=== PATIENT | male | born 1950 | race Caucasian/White ===

== ENCOUNTER 2024-11-08 09:09 | Inpatient (IN) | payer MEDICARE ==
[2024-11-08] MEDS ORDERED: Iopamidol-370 76% 500 ML MDV (1 ML CHARGE) ONE (09:30)
[2024-11-08 10:24] LABS: ALT (SGPT) 7 U/L (Less than 45); AST (SGOT) 17 U/L (11-34); Albumin 3.6 g/dL (3.1-4.5); Alkaline Phosphatase 81 U/L (40-110); Anion Gap 10 mmol/L (10-20); BUN (Urea Nitrogen) 25 mg/dL (8.4-25.7); Bilirubin, Total 0.5 mg/dL (0.3-1.2); Calc. Creatinine Clearance 0 mL/min (70-130); Calcium 9.2 mg/dL (7.8-10.44); Carbon Dioxide 21 mmol/L (23-31); Chloride 110 mmol/L (98-107); Globulin 2.2 g/dL (2.4-3.5); Glucose 108 mg/dL (83-110); Potassium 4.0 mmol/L (3.5-5.1); Sodium 137 mmol/L (136-145)
[2024-11-08 10:34] LABS: INR-International Normal Ratio 1.4; Prothrombin Time 16.8 sec (12.0-14.7)
[2024-11-08 10:35] LABS: PTT 36.7 sec (22.9-36.1)
[2024-11-08 10:40] LABS: #Basophils 0.04 10x3/uL (0.0-0.2); #Eosinophils 0.14 10x3/uL (0.0-0.7); #Monocytes 0.67 10x3/uL (0.11-0.59); #Neutrophils 6.90 10x3/uL (1.40-6.50); %Basophils 0.5 % (0.0-1.0); %Eosinophils 1.7 % (0.0-10.0); %Lymphocytes 4.3 % (21.0-51.0); %Monocytes 8.2 % (0.0-10.0); %Neutrophils 84.9 % (42.0-75.0); Hematocrit 24.5 % (42.0-52.0); Hemoglobin 8.2 g/dL (14.0-18.0); Mean Corpuscular Hemoglobin 34.9 pg (27.0-31.0); Mean Corpuscular Volume 104.3 fL (78.0-98.0); Platelet Count 123 10x3/uL (130-400); Red Blood Cell (RBC) Count 2.35 mill/uL (4.70-6.10); White Blood Cell (WBC) Count 8.13 10x3/uL (4.8-10.8)
[2024-11-08 10:48] LABS: Glucose, Urine (Dipstick) Negative (Negative); Leukocyte Negative (Negative); Protein, Urine (Dipstick) > or equal to 300 mg/dL (Neg-Trace); Specific Gravity, Urine 1.020 (1.005-1.030)
[2024-11-08 10:58] LABS: Bacteria/HPF 1+ HPF (None Seen); CAUTI Indications for Culture Acute Hematuria; RBC/HPF 21-50 HPF (0-3); WBC/HPF 0-3 HPF (0-3)
[2024-11-08 10:59] LABS: Urine Culture Reflex No No
[2024-11-08 11:14] LABS: Anisocytosis SLIGHT = 6-15 cells HPF (0-5); Macrocytosis SLIGHT = 6-15 cells HPF (0-5); Platelet Adequacy Comment Platelets Decreased; Polychromasia SLIGHT = 2-3 cells HPF (0-2); Schistocytes SLIGHT = 2-5 cells HPF (0-1)
[2024-11-08 11:22] LABS: Fibrinogen 416 mg/dL (253-463)
[2024-11-08 11:24] LABS: D-Dimer Test Less than 0.27 mcg/mL (0.27-0.43)
[2024-11-08] MEDS ORDERED: Acetaminophen 500 MG TAB ONE (12:00)
[2024-11-08] MEDS ORDERED: ALPRAZolam 0.25 MG TAB ONE (12:49)
[2024-11-08] MEDS ORDERED: HYDROmorphone 0.5 MG/0.5 ML SYRINGE ONE ×6 (14:31→17:50)
[2024-11-08 15:17] LABS: Hematocrit 23.5 % (42.0-52.0); Hemoglobin 7.8 g/dL (14.0-18.0); Platelet Count 135 10x3/uL (130-400)
[2024-11-08] MEDS ORDERED: Ondansetron PF 4 MG/2 ML Vial ONE ×2 (15:58→17:31)
[2024-11-08] MEDS ORDERED: Ondansetron PF 4 MG/2 ML Vial IVP PRN (16:10)
[2024-11-08] MEDS ORDERED: Acetaminophen 325 MG TAB PO PRN (16:10)
[2024-11-08] MEDS ORDERED: Melatonin 3 MG TAB PO PRN (16:54)
[2024-11-08] MEDS ORDERED: cefTRIAXone (ROCEPHIN) 2 GM VIAL ONE (17:50)
[2024-11-08] MEDS: cefTRIAXone\\ROCEPHIN 1 GM in Sodium Chloride 0.9% 100 ML IVPB SCH (20:40)
[2024-11-08 20:58] LABS: Hemoglobin 7.8 g/dL (14.0-18.0)
[2024-11-08] MEDS ORDERED: Rocuronium Bromide 10 MG/ML (10ML VIAL) ONE (22:38)
[2024-11-08] MEDS ORDERED: PROPOFOL 20 ML ONE (22:38)
[2024-11-08] MEDS ORDERED: Lidocaine 1% PF 5 ML VIAL ONE (22:38)
[2024-11-08] MEDS ORDERED: PHENYLEPHRINE-NS 100 MCG/ML 10 ML SYRINGE ONE (23:44)
[2024-11-09] MEDS ORDERED: PHENYLEPHRINE-NS 100 MCG/ML 10 ML SYRINGE ONE (00:28)
[2024-11-09 00:29] LABS: #Basophils Less than 0.03 10x3/uL (0.0-0.2); #Eosinophils Less than 0.03 10x3/uL (0.0-0.7); #Monocytes 0.25 10x3/uL (0.11-0.59); #Neutrophils 3.43 10x3/uL (1.40-6.50); %Basophils 0.5 % (0.0-1.0); %Eosinophils 0.5 % (0.0-10.0); %Lymphocytes 2.3 % (21.0-51.0); %Monocytes 6.5 % (0.0-10.0); %Neutrophils 89.7 % (42.0-75.0); Hematocrit 22.3 % (42.0-52.0); Hemoglobin 7.5 g/dL (14.0-18.0); Mean Corpuscular Hemoglobin 35.0 pg (27.0-31.0); Mean Corpuscular Volume 104.2 fL (78.0-98.0); Platelet Count 87 10x3/uL (130-400); Red Blood Cell (RBC) Count 2.14 mill/uL (4.70-6.10); White Blood Cell (WBC) Count 3.83 10x3/uL (4.8-10.8)
[2024-11-09] MEDS ORDERED: SUGAMMADEX SODIUM 200 MG/2 ML VIAL ONE (00:30)
[2024-11-09] MEDS ORDERED: Ondansetron PF 4 MG/2 ML Vial ONE ×2 (00:35→01:15)
[2024-11-09] MEDS ORDERED: Meperidine HCl/PF 25 MG (1 mL) VIAL ONE (00:49)
[2024-11-09] MEDS: HYDROmorphone 0.5 MG/0.5 ML SYRINGE SLOW IVP SCH ×3 (04:54→20:38)
[2024-11-09 06:10] LABS: ALT (SGPT) Less than 7 U/L (Less than 45); AST (SGOT) 21 U/L (11-34); Albumin 2.9 g/dL (3.1-4.5); Alkaline Phosphatase 70 U/L (40-110); Anion Gap 14 mmol/L (10-20); BUN (Urea Nitrogen) 28 mg/dL (8.4-25.7); Bilirubin, Total 0.3 mg/dL (0.3-1.2); Calc. Creatinine Clearance 25 mL/min (70-130); Calcium 8.3 mg/dL (7.8-10.44); Carbon Dioxide 20 mmol/L (23-31); Chloride 106 mmol/L (98-107); Globulin 2.2 g/dL (2.4-3.5); Glucose 122 mg/dL (83-110); Potassium 4.1 mmol/L (3.5-5.1); Sodium 136 mmol/L (136-145)
[2024-11-09 07:26] LABS: #Basophils Less than 0.03 10x3/uL (0.0-0.2); #Eosinophils Less than 0.03 10x3/uL (0.0-0.7); #Monocytes 0.70 10x3/uL (0.11-0.59); #Neutrophils 9.31 10x3/uL (1.40-6.50); %Basophils 0.1 % (0.0-1.0); %Eosinophils 0.2 % (0.0-10.0); %Lymphocytes 2.0 % (21.0-51.0); %Monocytes 6.8 % (0.0-10.0); %Neutrophils 90.4 % (42.0-75.0); Hematocrit 22.4 % (42.0-52.0); Hemoglobin 7.5 g/dL (14.0-18.0); Mean Corpuscular Hemoglobin 35.2 pg (27.0-31.0); Mean Corpuscular Volume 105.2 fL (78.0-98.0); Platelet Count 120 10x3/uL (130-400); Red Blood Cell (RBC) Count 2.13 mill/uL (4.70-6.10); White Blood Cell (WBC) Count 10.30 10x3/uL (4.8-10.8)
[2024-11-09] MEDS: Ondansetron PF 4 MG/2 ML Vial IVP PRN (08:55)
[2024-11-09 10:01] LABS: Hemoglobin 6.8 g/dL (14.0-18.0)
[2024-11-09] MEDS ORDERED: oxyCODONE/Acetaminophen 5 mg/325 mg Tablet PO PRN (14:46)
[2024-11-09] MEDS: Acetaminophen 325 MG TAB PO PRN (20:37)
[2024-11-09] MEDS: valACYclovir 500 MG TAB PO SCH (20:40)
[2024-11-10] MEDS: HYDROmorphone 2 MG/ML VIAL SLOW IVP SCH (03:03)
[2024-11-10 05:11] LABS: #Basophils Less than 0.03 10x3/uL (0.0-0.2); #Eosinophils 0.25 10x3/uL (0.0-0.7); #Monocytes 0.68 10x3/uL (0.11-0.59); #Neutrophils 7.02 10x3/uL (1.40-6.50); %Basophils 0.2 % (0.0-1.0); %Eosinophils 3.0 % (0.0-10.0); %Lymphocytes 3.5 % (21.0-51.0); %Monocytes 8.2 % (0.0-10.0); %Neutrophils 84.4 % (42.0-75.0); Hematocrit 25.2 % (42.0-52.0); Hemoglobin 8.4 g/dL (14.0-18.0); Mean Corpuscular Hemoglobin 33.3 pg (27.0-31.0); Mean Corpuscular Volume 100.0 fL (78.0-98.0); Platelet Count 106 10x3/uL (130-400); Red Blood Cell (RBC) Count 2.52 mill/uL (4.70-6.10); White Blood Cell (WBC) Count 8.32 10x3/uL (4.8-10.8)
[2024-11-10 05:20] LABS: Anion Gap 9 mmol/L (10-20); BUN (Urea Nitrogen) 25 mg/dL (8.4-25.7); Calc. Creatinine Clearance 44 mL/min (70-130); Calcium 8.2 mg/dL (7.8-10.44); Carbon Dioxide 21 mmol/L (23-31); Chloride 112 mmol/L (98-107); Glucose 86 mg/dL (83-110); Potassium 3.9 mmol/L (3.5-5.1); Sodium 138 mmol/L (136-145)
[2024-11-10] MEDS: Fluconazole 100 MG TAB PO SCH (09:07)
[2024-11-10] MEDS: Allopurinol 300 MG TAB PO SCH (09:07)
[2024-11-10] MEDS: HYDROmorphone 0.5 MG/0.5 ML SYRINGE SLOW IVP SCH (11:16)
[2024-11-11 08:15] LABS: Anion Gap 9 mmol/L (10-20); BUN (Urea Nitrogen) 20 mg/dL (8.4-25.7); Calc. Creatinine Clearance 68 mL/min (70-130); Calcium 8.2 mg/dL (7.8-10.44); Carbon Dioxide 22 mmol/L (23-31); Chloride 111 mmol/L (98-107); Glucose 88 mg/dL (83-110); Potassium 3.6 mmol/L (3.5-5.1); Sodium 138 mmol/L (136-145)
[2024-11-11 11:28] LABS: #Basophils Less than 0.03 10x3/uL (0.0-0.2); #Eosinophils 0.21 10x3/uL (0.0-0.7); #Monocytes 0.63 10x3/uL (0.11-0.59); #Neutrophils 6.72 10x3/uL (1.40-6.50); %Basophils 0.3 % (0.0-1.0); %Eosinophils 2.7 % (0.0-10.0); %Lymphocytes 3.2 % (21.0-51.0); %Monocytes 8.0 % (0.0-10.0); %Neutrophils 84.8 % (42.0-75.0); Hematocrit 24.5 % (42.0-52.0); Hemoglobin 8.3 g/dL (14.0-18.0); Mean Corpuscular Hemoglobin 33.3 pg (27.0-31.0); Mean Corpuscular Volume 98.4 fL (78.0-98.0); Platelet Count 135 10x3/uL (130-400); Red Blood Cell (RBC) Count 2.49 mill/uL (4.70-6.10); White Blood Cell (WBC) Count 7.91 10x3/uL (4.8-10.8)
[2024-11-11] MEDS: HYDROcodone/Acetaminophen 5/325 mg Tablet PO PRN (11:49)
[2024-11-12 04:44] LABS: #Basophils Less than 0.03 10x3/uL (0.0-0.2); #Eosinophils 0.26 10x3/uL (0.0-0.7); #Monocytes 0.55 10x3/uL (0.11-0.59); #Neutrophils 5.89 10x3/uL (1.40-6.50); %Basophils 0.3 % (0.0-1.0); %Eosinophils 3.7 % (0.0-10.0); %Lymphocytes 3.7 % (21.0-51.0); %Monocytes 7.8 % (0.0-10.0); %Neutrophils 83.8 % (42.0-75.0); Hematocrit 21.8 % (42.0-52.0); Hemoglobin 7.1 g/dL (14.0-18.0); Mean Corpuscular Hemoglobin 32.6 pg (27.0-31.0); Mean Corpuscular Volume 100.0 fL (78.0-98.0); Platelet Count 146 10x3/uL (130-400); Red Blood Cell (RBC) Count 2.18 mill/uL (4.70-6.10); White Blood Cell (WBC) Count 7.03 10x3/uL (4.8-10.8)
[2024-11-12 05:13] LABS: ALT (SGPT) 50 U/L (Less than 45); AST (SGOT) 72 U/L (11-34); Albumin 2.4 g/dL (3.1-4.5); Alkaline Phosphatase 73 U/L (40-110); Anion Gap 8 mmol/L (10-20); BUN (Urea Nitrogen) 21 mg/dL (8.4-25.7); Bilirubin, Total 0.3 mg/dL (0.3-1.2); Calc. Creatinine Clearance 57 mL/min (70-130); Calcium 8.1 mg/dL (7.8-10.44); Carbon Dioxide 22 mmol/L (23-31); Chloride 111 mmol/L (98-107); Globulin 2.3 g/dL (2.4-3.5); Glucose 102 mg/dL (83-110); Magnesium 1.5 mg/dL (1.6-2.6); Potassium 3.8 mmol/L (3.5-5.1); Sodium 137 mmol/L (136-145)
[2024-11-12] MEDS: ALPRAZolam 0.25 MG TAB PO PRN (08:30)
[2024-11-12 21:24] LABS: Hematocrit 27.1 % (42.0-52.0); Hemoglobin 9.2 g/dL (14.0-18.0)
[2024-11-13 05:36] LABS: #Basophils Less than 0.03 10x3/uL (0.0-0.2); #Eosinophils 0.20 10x3/uL (0.0-0.7); #Monocytes 0.36 10x3/uL (0.11-0.59); #Neutrophils 3.39 10x3/uL (1.40-6.50); %Basophils 0.5 % (0.0-1.0); %Eosinophils 4.8 % (0.0-10.0); %Lymphocytes 4.3 % (21.0-51.0); %Monocytes 8.6 % (0.0-10.0); %Neutrophils 81.1 % (42.0-75.0); Hematocrit 32.1 % (42.0-52.0); Hemoglobin 10.9 g/dL (14.0-18.0); Mean Corpuscular Hemoglobin 33.3 pg (27.0-31.0); Mean Corpuscular Volume 98.2 fL (78.0-98.0); Platelet Count 128 10x3/uL (130-400); Red Blood Cell (RBC) Count 3.27 mill/uL (4.70-6.10); White Blood Cell (WBC) Count 4.18 10x3/uL (4.8-10.8)
[2024-11-13 06:37] LABS: ALT (SGPT) 49 U/L (Less than 45); AST (SGOT) 53 U/L (11-34); Albumin 2.4 g/dL (3.1-4.5); Alkaline Phosphatase 70 U/L (40-110); Anion Gap 10 mmol/L (10-20); BUN (Urea Nitrogen) 24 mg/dL (8.4-25.7); Bilirubin, Total 0.3 mg/dL (0.3-1.2); Calc. Creatinine Clearance 42 mL/min (70-130); Calcium 8.2 mg/dL (7.8-10.44); Carbon Dioxide 21 mmol/L (23-31); Chloride 110 mmol/L (98-107); Globulin 2.3 g/dL (2.4-3.5); Glucose 88 mg/dL (83-110); Magnesium 1.5 mg/dL (1.6-2.6); Potassium 3.8 mmol/L (3.5-5.1); Sodium 137 mmol/L (136-145)
[2024-11-13] MEDS: Magnesium 2 GM/50 ML(in water) 2 GM in Premix 1 BAG IVPB SCH (08:50)
[2024-11-14 05:27] LABS: #Basophils 0.03 10x3/uL (0.0-0.2); #Eosinophils 0.19 10x3/uL (0.0-0.7); #Monocytes 0.43 10x3/uL (0.11-0.59); #Neutrophils 4.66 10x3/uL (1.40-6.50); %Basophils 0.5 % (0.0-1.0); %Eosinophils 3.4 % (0.0-10.0); %Lymphocytes 4.6 % (21.0-51.0); %Monocytes 7.7 % (0.0-10.0); %Neutrophils 82.9 % (42.0-75.0); Hematocrit 26.7 % (42.0-52.0); Hemoglobin 8.8 g/dL (14.0-18.0); Mean Corpuscular Hemoglobin 32.5 pg (27.0-31.0); Mean Corpuscular Volume 98.5 fL (78.0-98.0); Platelet Count 158 10x3/uL (130-400); Red Blood Cell (RBC) Count 2.71 mill/uL (4.70-6.10); White Blood Cell (WBC) Count 5.62 10x3/uL (4.8-10.8)
[2024-11-14 05:41] LABS: ALT (SGPT) 38 U/L (Less than 45); AST (SGOT) 34 U/L (11-34); Albumin 2.3 g/dL (3.1-4.5); Alkaline Phosphatase 73 U/L (40-110); Anion Gap 9 mmol/L (10-20); BUN (Urea Nitrogen) 26 mg/dL (8.4-25.7); Bilirubin, Total 0.3 mg/dL (0.3-1.2); Calc. Creatinine Clearance 36 mL/min (70-130); Calcium 8.0 mg/dL (7.8-10.44); Carbon Dioxide 21 mmol/L (23-31); Chloride 111 mmol/L (98-107); Globulin 2.2 g/dL (2.4-3.5); Glucose 90 mg/dL (83-110); Magnesium 1.9 mg/dL (1.6-2.6); Potassium 3.9 mmol/L (3.5-5.1); Sodium 137 mmol/L (136-145)
[2024-11-15 04:53] LABS: #Basophils Less than 0.03 10x3/uL (0.0-0.2); #Eosinophils 0.22 10x3/uL (0.0-0.7); #Monocytes 0.43 10x3/uL (0.11-0.59); #Neutrophils 4.18 10x3/uL (1.40-6.50); %Basophils 0.4 % (0.0-1.0); %Eosinophils 4.3 % (0.0-10.0); %Lymphocytes 5.0 % (21.0-51.0); %Monocytes 8.3 % (0.0-10.0); %Neutrophils 81.2 % (42.0-75.0); Hematocrit 25.1 % (42.0-52.0); Hemoglobin 8.4 g/dL (14.0-18.0); Mean Corpuscular Hemoglobin 32.6 pg (27.0-31.0); Mean Corpuscular Volume 97.3 fL (78.0-98.0); Platelet Count 179 10x3/uL (130-400); Red Blood Cell (RBC) Count 2.58 mill/uL (4.70-6.10); White Blood Cell (WBC) Count 5.15 10x3/uL (4.8-10.8)
[2024-11-15] MEDS: Calcium Carbonate 500 MG ChewTAB PO SCH (05:10)
[2024-11-15 06:08] LABS: ALT (SGPT) 22 U/L (Less than 45); AST (SGOT) 19 U/L (11-34); Albumin 2.3 g/dL (3.1-4.5); Alkaline Phosphatase 73 U/L (40-110); Anion Gap 17 mmol/L (10-20); BUN (Urea Nitrogen) 31 mg/dL (8.4-25.7); Bilirubin, Total 0.3 mg/dL (0.3-1.2); Calc. Creatinine Clearance 21 mL/min (70-130); Calcium 8.0 mg/dL (7.8-10.44); Carbon Dioxide 18 mmol/L (23-31); Chloride 101 mmol/L (98-107); Globulin 2.0 g/dL (2.4-3.5); Glucose 87 mg/dL (83-110); Magnesium 1.8 mg/dL (1.6-2.6); Potassium 3.6 mmol/L (3.5-5.1); Sodium 132 mmol/L (136-145)
[2024-11-15] MEDS: Albumin 25% 25 GM (100 mL) BOT IVPB SCH ×2 (09:35→16:46)
[2024-11-15] MEDS: Sofosbuvir/Velpatasvir [Epclusa 400 Mg-100 Mg Tablet] PO SCH (11:23)
[2024-11-15 17:02] LABS: Bacteria/HPF None Seen HPF (None Seen); Glucose, Urine (Dipstick) 100 mg/dL (Negative); Leukocyte Negative Leu/uL (Negative); Protein, Urine (Dipstick) 300 mg/dL (Neg-Trace); RBC/HPF Greater than 50 HPF (0-3); Specific Gravity, Urine 1.033 (1.002-1.036); WBC/HPF 21-50 HPF (0-3)
[2024-11-15 17:10] LABS: Sodium, Urine 254 mmol/L (Not Available)
[2024-11-16 05:21] LABS: #Basophils Less than 0.03 10x3/uL (0.0-0.2); #Eosinophils 0.21 10x3/uL (0.0-0.7); #Monocytes 0.49 10x3/uL (0.11-0.59); #Neutrophils 4.82 10x3/uL (1.40-6.50); %Basophils 0.3 % (0.0-1.0); %Eosinophils 3.6 % (0.0-10.0); %Lymphocytes 4.5 % (21.0-51.0); %Monocytes 8.4 % (0.0-10.0); %Neutrophils 82.5 % (42.0-75.0); Hematocrit 20.0 % (42.0-52.0); Hemoglobin 7.0 g/dL (14.0-18.0); Mean Corpuscular Hemoglobin 33.2 pg (27.0-31.0); Mean Corpuscular Volume 94.8 fL (78.0-98.0); Platelet Count 185 10x3/uL (130-400); Red Blood Cell (RBC) Count 2.11 mill/uL (4.70-6.10); White Blood Cell (WBC) Count 5.84 10x3/uL (4.8-10.8)
[2024-11-16 05:46] LABS: Anion Gap 16 mmol/L (10-20); BUN (Urea Nitrogen) 33 mg/dL (8.4-25.7); Calc. Creatinine Clearance 15 mL/min (70-130); Calcium 8.0 mg/dL (7.8-10.44); Carbon Dioxide 20 mmol/L (23-31); Chloride 96 mmol/L (98-107); Glucose 83 mg/dL (83-110); Potassium 3.7 mmol/L (3.5-5.1); Sodium 128 mmol/L (136-145)
[2024-11-16] MEDS: Mineral Oil ENEMA PR SCH (09:31)
[2024-11-16 10:28] LABS: Magnesium 1.8 mg/dL (1.6-2.6)
[2024-11-16 10:29] LABS: Iron 41 ug/dL (65-175); Iron Binding Capacity, Total 109 mcg/dL (261-462); Uric Acid 7.4 mg/dL (3.7-7.7)
[2024-11-16 17:46] LABS: #Basophils Less than 0.03 10x3/uL (0.0-0.2); #Eosinophils 0.19 10x3/uL (0.0-0.7); #Monocytes 0.39 10x3/uL (0.11-0.59); #Neutrophils 3.64 10x3/uL (1.40-6.50); %Basophils 0.2 % (0.0-1.0); %Eosinophils 4.2 % (0.0-10.0); %Lymphocytes 6.0 % (21.0-51.0); %Monocytes 8.6 % (0.0-10.0); %Neutrophils 80.3 % (42.0-75.0); Hematocrit 22.7 % (42.0-52.0); Hemoglobin 7.9 g/dL (14.0-18.0); Mean Corpuscular Hemoglobin 32.6 pg (27.0-31.0); Mean Corpuscular Volume 93.8 fL (78.0-98.0); Platelet Count 196 10x3/uL (130-400); Red Blood Cell (RBC) Count 2.42 mill/uL (4.70-6.10); White Blood Cell (WBC) Count 4.53 10x3/uL (4.8-10.8)
[2024-11-16] MEDS: Albumin 25% 25 GM (100 mL) BOT IVPB SCH (18:03)
[2024-11-16 18:07] LABS: Anion Gap 13 mmol/L (10-20); BUN (Urea Nitrogen) 34 mg/dL (8.4-25.7); Calc. Creatinine Clearance 13 mL/min (70-130); Calcium 8.0 mg/dL (7.8-10.44); Carbon Dioxide 23 mmol/L (23-31); Chloride 95 mmol/L (98-107); Glucose 97 mg/dL (83-110); Potassium 3.5 mmol/L (3.5-5.1); Sodium 127 mmol/L (136-145)
[2024-11-17 03:37] LABS: #Basophils Less than 0.03 10x3/uL (0.0-0.2); #Eosinophils 0.22 10x3/uL (0.0-0.7); #Monocytes 0.39 10x3/uL (0.11-0.59); #Neutrophils 2.81 10x3/uL (1.40-6.50); %Basophils 0.3 % (0.0-1.0); %Eosinophils 6.0 % (0.0-10.0); %Lymphocytes 6.2 % (21.0-51.0); %Monocytes 10.6 % (0.0-10.0); %Neutrophils 76.1 % (42.0-75.0); Hematocrit 21.0 % (42.0-52.0); Hemoglobin 7.4 g/dL (14.0-18.0); Mean Corpuscular Hemoglobin 32.7 pg (27.0-31.0); Mean Corpuscular Volume 92.9 fL (78.0-98.0); Platelet Count 167 10x3/uL (130-400); Red Blood Cell (RBC) Count 2.26 mill/uL (4.70-6.10); White Blood Cell (WBC) Count 3.69 10x3/uL (4.8-10.8)
[2024-11-17 05:19] LABS: Albumin 3.2 g/dL (3.1-4.5); Anion Gap 17 mmol/L (10-20); BUN (Urea Nitrogen) 34 mg/dL (8.4-25.7); BUN/Creatinine Ratio 5.22; Calc. Creatinine Clearance 12 mL/min (70-130); Calcium 7.9 mg/dL (7.8-10.44); Carbon Dioxide 22 mmol/L (23-31); Chloride 91 mmol/L (98-107); Glucose 90 mg/dL (83-110); Potassium 3.3 mmol/L (3.5-5.1); Sodium 127 mmol/L (136-145)
[2024-11-17] MEDS: Potassium Bicarbonate/Cit Ac 20 MEQ TAB PO SCH (09:49)
[2024-11-17] MEDS: Furosemide 100 MG (10 mL) VIAL SLOW IVP SCH ×2 (09:49→11:29)
[2024-11-17] MEDS: Pantoprazole 40 MG VIAL IVP SCH (09:49)
[2024-11-17] MEDS ORDERED: Heparin 10,000 UNITS/ 10 ML VIAL ONE (10:11)
[2024-11-17 14:07] LABS: HBSAB Concentration Less than 8.00 mIU/mL; Hep B Core Total Ab NONREACTIVE (NonReactive); Hep B Core Total Index 0.19 S/CO (0-0.79); Hep B Surf Ag NONREACTIVE S/CO (NonReactive); Hep C IgG Ab Reflex HepC Qnt S/CO (NonReactive); Hep C Index 15.41 S/CO (0-0.79)
[2024-11-18 04:29] LABS: #Basophils Less than 0.03 10x3/uL (0.0-0.2); #Eosinophils 0.13 10x3/uL (0.0-0.7); #Monocytes 0.34 10x3/uL (0.11-0.59); #Neutrophils 2.60 10x3/uL (1.40-6.50); %Basophils 0.6 % (0.0-1.0); %Eosinophils 3.9 % (0.0-10.0); %Lymphocytes 5.8 % (21.0-51.0); %Monocytes 10.3 % (0.0-10.0); %Neutrophils 78.8 % (42.0-75.0); Hematocrit 22.1 % (42.0-52.0); Hemoglobin 7.8 g/dL (14.0-18.0); Mean Corpuscular Hemoglobin 33.6 pg (27.0-31.0); Mean Corpuscular Volume 95.3 fL (78.0-98.0); Platelet Count 189 10x3/uL (130-400); Red Blood Cell (RBC) Count 2.32 mill/uL (4.70-6.10); White Blood Cell (WBC) Count 3.30 10x3/uL (4.8-10.8)
[2024-11-18 04:43] LABS: Anion Gap 16 mmol/L (10-20); BUN (Urea Nitrogen) 25 mg/dL (8.4-25.7); Calc. Creatinine Clearance 13 mL/min (70-130); Calcium 8.4 mg/dL (7.8-10.44); Carbon Dioxide 25 mmol/L (23-31); Chloride 97 mmol/L (98-107); Glucose 77 mg/dL (83-110); Potassium 3.7 mmol/L (3.5-5.1); Sodium 134 mmol/L (136-145)
[2024-11-18] MEDS ORDERED: Heparin 10,000 UNITS/ 10 ML VIAL ONE (10:40)
[2024-11-18] MEDS: Sodium Ferric Gluconate 250 MG in Sodium Chloride 0.9% 250 ML 250 ML IVPB SCH (11:10)
[2024-11-18] MEDS: EPOETIN ALFA-EPBX (ESRD) 10,000 UNITS/ML VIAL FS SCH (17:04)
[2024-11-18] MEDS ORDERED: EPOETIN ALFA-EPBX (ESRD) 10,000 UNITS/ML VIAL SC SCH (17:15)
[2024-11-18] MEDS: EPOETIN ALFA-EPBX (ESRD) 10,000 UNITS/ML VIAL IVP SCH (17:28)
[2024-11-18] MEDS: Epoetin (ESRD) 10,000 UNITS/ML VIAL SC SCH (19:42)
[2024-11-19] MEDS: HYDROcodone/Acetaminophen 5/325 mg Tablet PO SCH (00:05)
[2024-11-19 04:04] LABS: #Basophils Less than 0.03 10x3/uL (0.0-0.2); #Eosinophils 0.11 10x3/uL (0.0-0.7); #Monocytes 0.36 10x3/uL (0.11-0.59); #Neutrophils 1.90 10x3/uL (1.40-6.50); %Basophils 0.8 % (0.0-1.0); %Eosinophils 4.3 % (0.0-10.0); %Lymphocytes 6.6 % (21.0-51.0); %Monocytes 14.0 % (0.0-10.0); %Neutrophils 73.9 % (42.0-75.0); Hematocrit 21.9 % (42.0-52.0); Hemoglobin 7.5 g/dL (14.0-18.0); Mean Corpuscular Hemoglobin 33.0 pg (27.0-31.0); Mean Corpuscular Volume 96.5 fL (78.0-98.0); Platelet Count 176 10x3/uL (130-400); Red Blood Cell (RBC) Count 2.27 mill/uL (4.70-6.10); White Blood Cell (WBC) Count 2.57 10x3/uL (4.8-10.8)
[2024-11-19 04:15] LABS: Albumin 3.3 g/dL (3.1-4.5); Anion Gap 13 mmol/L (10-20); BUN (Urea Nitrogen) 17 mg/dL (8.4-25.7); BUN/Creatinine Ratio 3.28; Calc. Creatinine Clearance 15 mL/min (70-130); Calcium 8.2 mg/dL (7.8-10.44); Carbon Dioxide 26 mmol/L (23-31); Chloride 100 mmol/L (98-107); Glucose 84 mg/dL (83-110); Potassium 3.9 mmol/L (3.5-5.1); Sodium 135 mmol/L (136-145)
[2024-11-19] MEDS ORDERED: Heparin 10,000 UNITS/ 10 ML VIAL ONE (10:32)
[2024-11-19] MEDS: ALPRAZolam 0.25 MG TAB PO SCH ×2 (14:05→21:22)
[2024-11-20 06:17] LABS: #Basophils Less than 0.03 10x3/uL (0.0-0.2); #Eosinophils 0.12 10x3/uL (0.0-0.7); #Monocytes 0.36 10x3/uL (0.11-0.59); #Neutrophils 1.46 10x3/uL (1.40-6.50); %Basophils 0.5 % (0.0-1.0); %Eosinophils 5.6 % (0.0-10.0); %Lymphocytes 8.8 % (21.0-51.0); %Monocytes 16.7 % (0.0-10.0); %Neutrophils 67.9 % (42.0-75.0); Hematocrit 22.7 % (42.0-52.0); Hemoglobin 7.6 g/dL (14.0-18.0); Mean Corpuscular Hemoglobin 32.9 pg (27.0-31.0); Mean Corpuscular Volume 98.3 fL (78.0-98.0); Platelet Count 213 10x3/uL (130-400); Red Blood Cell (RBC) Count 2.31 mill/uL (4.70-6.10); White Blood Cell (WBC) Count 2.15 10x3/uL (4.8-10.8)
[2024-11-20 06:33] LABS: Albumin 3.3 g/dL (3.1-4.5); Anion Gap 15 mmol/L (10-20); BUN (Urea Nitrogen) 9 mg/dL (8.4-25.7); BUN/Creatinine Ratio 2.65; Calc. Creatinine Clearance 23 mL/min (70-130); Calcium 8.3 mg/dL (7.8-10.44); Carbon Dioxide 26 mmol/L (23-31); Chloride 100 mmol/L (98-107); Glucose 77 mg/dL (83-110); Potassium 4.1 mmol/L (3.5-5.1); Sodium 137 mmol/L (136-145)
[2024-11-20] MEDS ORDERED: Tuberculin PPD 0.1 ML SYRINGE (10 TEST VIAL) I-DERMAL SCH ×2 (07:30→07:45)
[2024-11-20 15:37] LABS: Hep C PCR-Quant HCV Not Detected IU/mL (.)
[2024-11-21 04:49] LABS: Albumin 3.1 g/dL (3.1-4.5); Anion Gap 13 mmol/L (10-20); BUN (Urea Nitrogen) 17 mg/dL (8.4-25.7); BUN/Creatinine Ratio 3.22; Calc. Creatinine Clearance 15 mL/min (70-130); Calcium 8.3 mg/dL (7.8-10.44); Carbon Dioxide 25 mmol/L (23-31); Chloride 100 mmol/L (98-107); Glucose 83 mg/dL (83-110); Potassium 4.2 mmol/L (3.5-5.1); Sodium 134 mmol/L (136-145)
[2024-11-21] MEDS ORDERED: Heparin 10,000 UNITS/ 10 ML VIAL ONE (11:02)
[2024-11-21] MEDS: ALPRAZolam 0.5 MG TAB PO PRN (23:50)
[2024-11-22] MEDS: HYDROcodone/Acetaminophen 10/325 mg Tablet PO PRN (02:11)
[2024-11-22 05:23] LABS: Albumin 3.4 g/dL (3.1-4.5); Anion Gap 13 mmol/L (10-20); BUN (Urea Nitrogen) 10 mg/dL (8.4-25.7); BUN/Creatinine Ratio 2.70; Calc. Creatinine Clearance 21 mL/min (70-130); Calcium 8.7 mg/dL (7.8-10.44); Carbon Dioxide 27 mmol/L (23-31); Chloride 103 mmol/L (98-107); Glucose 82 mg/dL (83-110); Potassium 4.1 mmol/L (3.5-5.1); Sodium 139 mmol/L (136-145)
[2024-11-22] MEDS: PHOS-NAK 1 PKT PACK PO SCH (08:58)
[2024-11-22] MEDS: Metoprolol Succinate XL 25 MG ER.TAB PO SCH (09:00)
[2024-11-22] MEDS: Megestrol Acetate 800 MG/20 ML UDCUP PO SCH (09:01)
[2024-11-22] MEDS: READ PPD TEST SITE PO SCH (09:03)
[2024-11-22] MEDS ORDERED: Heparin 10,000 UNITS/ 10 ML VIAL ONE (15:54)
[2024-11-22] MEDS ORDERED: Bupivacaine 0.25% HCL 30 ML VIAL ONE (15:54)
[2024-11-22] MEDS ORDERED: PROPOFOL 20 ML ONE (15:56)
[2024-11-22] MEDS ORDERED: Etomidate 40 MG (20 mL) VIAL ONE (15:56)
[2024-11-22] MEDS ORDERED: fentaNYL PF 100 MCG/2 ML SYRINGE ONE (15:56)
[2024-11-22] MEDS: Mupirocin 1 GM TUBE TP SCH (21:56)
[2024-11-23 04:16] LABS: Hematocrit 25.0 % (42.0-52.0); Hemoglobin 8.1 g/dL (14.0-18.0); Mean Corpuscular Hemoglobin 32.8 pg (27.0-31.0); Mean Corpuscular Volume 101.2 fL (78.0-98.0); Platelet Count 217 10x3/uL (130-400); Red Blood Cell (RBC) Count 2.47 mill/uL (4.70-6.10); White Blood Cell (WBC) Count 2.74 10x3/uL (4.8-10.8)
[2024-11-23 04:27] LABS: Albumin 3.2 g/dL (3.1-4.5); Anion Gap 15 mmol/L (10-20); BUN (Urea Nitrogen) 21 mg/dL (8.4-25.7); BUN/Creatinine Ratio 3.91; Calc. Creatinine Clearance 15 mL/min (70-130); Calcium 8.6 mg/dL (7.8-10.44); Carbon Dioxide 25 mmol/L (23-31); Chloride 103 mmol/L (98-107); Glucose 83 mg/dL (83-110); Potassium 4.3 mmol/L (3.5-5.1); Sodium 139 mmol/L (136-145)
[2024-11-23 04:41] LABS: Anisocytosis SLIGHT = 6-15 cells HPF (0-5); Macrocytosis SLIGHT = 6-15 cells HPF (0-5); Nucleated RBC (Manual Ct) 1 % (0); Platelet Adequacy Comment Platelets Normal; Polychromasia SLIGHT = 2-3 cells HPF (0-2)
[2024-11-23] MEDS ORDERED: Heparin 10,000 UNITS/ 10 ML VIAL ONE (08:46)
[2024-11-23] MEDS: Metoprolol Succinate XL 50 MG ER.TAB PO SCH (13:05)
[2024-11-24] MEDS ORDERED: Allopurinol 300 MG TAB PO SCH (07:00)
[2024-11-24 07:33] LABS: Hematocrit 25.3 % (42.0-52.0); Hemoglobin 8.3 g/dL (14.0-18.0); Mean Corpuscular Hemoglobin 33.1 pg (27.0-31.0); Mean Corpuscular Volume 100.8 fL (78.0-98.0); Platelet Count 226 10x3/uL (130-400); Red Blood Cell (RBC) Count 2.51 mill/uL (4.70-6.10); White Blood Cell (WBC) Count 2.90 10x3/uL (4.8-10.8)
[2024-11-24 07:42] LABS: Albumin 3.0 g/dL (3.1-4.5); Anion Gap 13 mmol/L (10-20); BUN (Urea Nitrogen) 23 mg/dL (8.4-25.7); BUN/Creatinine Ratio 5.13; Calc. Creatinine Clearance 18 mL/min (70-130); Calcium 8.6 mg/dL (7.8-10.44); Carbon Dioxide 28 mmol/L (23-31); Chloride 100 mmol/L (98-107); Glucose 91 mg/dL (83-110); Potassium 3.9 mmol/L (3.5-5.1); Sodium 137 mmol/L (136-145)
[2024-11-24 08:57] LABS: Anisocytosis SLIGHT = 6-15 cells HPF (0-5); Hypersegmented Neutrophil SLIGHT (None Seen); Macrocytosis MODERATE=16-30 cells HPF (0-5); Microcytosis SLIGHT = 6-15 cells HPF (0-5); Platelet Adequacy Comment Platelets Normal; Polychromasia SLIGHT = 2-3 cells HPF (0-2); Schistocytes SLIGHT = 2-5 cells HPF (0-1); Smudge Cells 9.5 %; Toxic Granulation SLIGHT
[2024-11-24] MEDS: Allopurinol 100 MG TAB PO SCH (09:18)
[2024-11-24] MEDS: ALPRAZolam 0.25 MG TAB PO PRN (21:42)
[2024-11-25 05:26] LABS: Hematocrit 26.6 % (42.0-52.0); Hemoglobin 8.7 g/dL (14.0-18.0); Mean Corpuscular Hemoglobin 33.1 pg (27.0-31.0); Mean Corpuscular Volume 101.1 fL (78.0-98.0); Platelet Count 251 10x3/uL (130-400); Red Blood Cell (RBC) Count 2.63 mill/uL (4.70-6.10); White Blood Cell (WBC) Count 2.83 10x3/uL (4.8-10.8)
[2024-11-25 05:38] LABS: Albumin 2.9 g/dL (3.1-4.5); Anion Gap 17 mmol/L (10-20); BUN (Urea Nitrogen) 41 mg/dL (8.4-25.7); BUN/Creatinine Ratio 6.60; Calc. Creatinine Clearance 13 mL/min (70-130); Calcium 8.9 mg/dL (7.8-10.44); Carbon Dioxide 25 mmol/L (23-31); Chloride 98 mmol/L (98-107); Glucose 81 mg/dL (83-110); Potassium 4.0 mmol/L (3.5-5.1); Sodium 136 mmol/L (136-145)
[2024-11-25 06:38] LABS: Anisocytosis MODERATE=16-30 cells HPF (0-5); Macrocytosis SLIGHT = 6-15 cells HPF (0-5); Platelet Adequacy Comment Platelets Normal; Polychromasia SLIGHT = 2-3 cells HPF (0-2); Smudge Cells 17.8 %
[2024-11-25] MEDS ORDERED: Heparin 10,000 UNITS/ 10 ML VIAL ONE (10:18)
[2024-11-26 05:11] LABS: Hematocrit 28.1 % (42.0-52.0); Hemoglobin 9.1 g/dL (14.0-18.0); Mean Corpuscular Hemoglobin 32.5 pg (27.0-31.0); Mean Corpuscular Volume 100.4 fL (78.0-98.0); Platelet Count 188 10x3/uL (130-400); Red Blood Cell (RBC) Count 2.80 mill/uL (4.70-6.10); White Blood Cell (WBC) Count 2.73 10x3/uL (4.8-10.8)
[2024-11-26 05:48] LABS: Anion Gap 19 mmol/L (10-20); BUN (Urea Nitrogen) 32 mg/dL (8.4-25.7); Calc. Creatinine Clearance 16 mL/min (70-130); Calcium 8.9 mg/dL (7.8-10.44); Carbon Dioxide 22 mmol/L (23-31); Chloride 97 mmol/L (98-107); Glucose 88 mg/dL (83-110); Potassium 4.2 mmol/L (3.5-5.1); Sodium 134 mmol/L (136-145)
[2024-11-26 05:58] LABS: Macrocytosis SLIGHT = 6-15 cells HPF (0-5); Platelet Adequacy Comment Platelets Normal; Polychromasia SLIGHT = 2-3 cells HPF (0-2); Smudge Cells 20.2 %
[2024-11-26] MEDS: EPCLUSA PO SCH (14:15)
[2024-11-27 05:27] LABS: Hematocrit 27.6 % (42.0-52.0); Hemoglobin 9.1 g/dL (14.0-18.0); Mean Corpuscular Hemoglobin 32.7 pg (27.0-31.0); Mean Corpuscular Volume 99.3 fL (78.0-98.0); Platelet Count 182 10x3/uL (130-400); Red Blood Cell (RBC) Count 2.78 mill/uL (4.70-6.10); White Blood Cell (WBC) Count 3.02 10x3/uL (4.8-10.8)
[2024-11-27 05:35] LABS: Anion Gap 20 mmol/L (10-20); BUN (Urea Nitrogen) 45 mg/dL (8.4-25.7); Calc. Creatinine Clearance 11 mL/min (70-130); Calcium 9.0 mg/dL (7.8-10.44); Carbon Dioxide 24 mmol/L (23-31); Chloride 96 mmol/L (98-107); Glucose 86 mg/dL (83-110); Potassium 4.3 mmol/L (3.5-5.1); Sodium 136 mmol/L (136-145)
[2024-11-27 07:01] LABS: Anisocytosis SLIGHT = 6-15 cells HPF (0-5); Macrocytosis SLIGHT = 6-15 cells HPF (0-5); Platelet Adequacy Comment Platelets Normal; Polychromasia SLIGHT = 2-3 cells HPF (0-2); Smudge Cells 12.4 %
[2024-11-27] MEDS: valACYclovir 500 MG TAB PO SCH (09:09)
[2024-11-27] MEDS: EPCLUSA PO SCH (09:12)
[2024-11-27 23:01] LABS: ALV-art Gradient 56.870 mmHg (0-20); Actual Bicarbonate (HCO3a) 20.8 mEq/L (22-28); Base Excess (BEa) -2.8 mEq/L (-2.0 to +3.0); CO2 Tension 31.8 mmHg (35.0-45.0); Calcium, Ionized (arterial) 1.24 mmol/L (1.12-1.30); Hematocrit-ABG 28 % (42.0-52.0); Hemoglobin (Hb) 9.6 g/dL (14.0-18.0); O2 Tension (PaO2), arterial 74.5 mmHg (> 70.0); Potassium - ABG Lab 4.49 mmol/L (3.70-5.30); Puncture Site la; pH, Arterial 7.434 (7.35-7.45)
[2024-11-28] MEDS: Albumin 25% 25 GM (100 mL) BOT IVPB SCH ×2 (04:07→08:31)
[2024-11-28] MEDS: NOREPINEPHRINE 8 MG/250 ML-D5W 250 ML IVPB SCH (04:07)
[2024-11-28 04:14] LABS: Hematocrit 27.8 % (42.0-52.0); Hemoglobin 8.9 g/dL (14.0-18.0); Mean Corpuscular Hemoglobin 32.2 pg (27.0-31.0); Mean Corpuscular Volume 100.7 fL (78.0-98.0); Platelet Count 154 10x3/uL (130-400); Red Blood Cell (RBC) Count 2.76 mill/uL (4.70-6.10); White Blood Cell (WBC) Count 3.17 10x3/uL (4.8-10.8)
[2024-11-28] MEDS ORDERED: Norepinephrine 16 MG in Dextrose 5% in Water 234 ML IVPB SCH (04:15)
[2024-11-28] MEDS ORDERED: Norepinephrine 16 MG in Dextrose 5% in Water 234 ML IVPB PRN (04:15)
[2024-11-28 04:41] LABS: ALT (SGPT) Less than 7 U/L (Less than 45); AST (SGOT) 29 U/L (11-34); Albumin 2.7 g/dL (3.1-4.5); Alkaline Phosphatase 58 U/L (40-110); Anion Gap 18 mmol/L (10-20); BUN (Urea Nitrogen) 59 mg/dL (8.4-25.7); Bilirubin, Total 0.7 mg/dL (0.3-1.2); Calc. Creatinine Clearance 9 mL/min (70-130); Calcium 9.0 mg/dL (7.8-10.44); Carbon Dioxide 23 mmol/L (23-31); Chloride 99 mmol/L (98-107); Globulin 2.6 g/dL (2.4-3.5); Glucose 82 mg/dL (83-110); Potassium 4.8 mmol/L (3.5-5.1); Sodium 135 mmol/L (136-145)
[2024-11-28 04:53] LABS: Anisocytosis SLIGHT = 6-15 cells HPF (0-5); Burr Cells SLIGHT = 2-5 cells HPF (0-1); Macrocytosis SLIGHT = 6-15 cells HPF (0-5); Platelet Adequacy Comment Platelets Normal; Polychromasia SLIGHT = 2-3 cells HPF (0-2); Smudge Cells 13.6 %
[2024-11-28] MEDS ORDERED: NOREPINEPHRINE 8 MG/250 ML-D5W 250 ML IVPB SCH (06:15)
[2024-11-28] MEDS: Norepinephrine 16 MG in Dextrose 5% in Water 234 ML IVPB PRN (06:28)
[2024-11-28] MEDS ORDERED: Heparin 10,000 UNITS/ 10 ML VIAL ONE (09:07)
[2024-11-28 12:31] VITALS: BMI 27.1
[2024-11-28] MEDS: Pantoprazole 40 MG VIAL IVP SCH (13:03)
[2024-11-28] MEDS: Amiodarone 150 MG, Admixture Fee 1 EACH in Dextrose 5% in Water 100 ML IVPB SCH (23:32)
[2024-11-29] MEDS ORDERED: Digoxin 0.5 MG/2 ML AMP SLOW IVP SCH (00:30)
[2024-11-29 00:43] LABS: Anion Gap 20 mmol/L (10-20); BUN (Urea Nitrogen) 21 mg/dL (8.4-25.7); Calc. Creatinine Clearance 18 mL/min (70-130); Calcium 8.7 mg/dL (7.8-10.44); Carbon Dioxide 23 mmol/L (23-31); Chloride 100 mmol/L (98-107); Glucose 81 mg/dL (83-110); Magnesium 1.9 mg/dL (1.6-2.6); Potassium 3.4 mmol/L (3.5-5.1); Sodium 140 mmol/L (136-145)
[2024-11-29] MEDS: Albumin 25% 25 GM (100 mL) BOT IVPB SCH (01:05)
[2024-11-29] MEDS: Digoxin 0.5 MG/2 ML AMP ONE (01:06)
[2024-11-29 01:22] LABS: Hematocrit 26.4 % (42.0-52.0); Hemoglobin 8.6 g/dL (14.0-18.0); Mean Corpuscular Hemoglobin 32.8 pg (27.0-31.0); Mean Corpuscular Volume 100.8 fL (78.0-98.0); Platelet Count 184 10x3/uL (130-400); Red Blood Cell (RBC) Count 2.62 mill/uL (4.70-6.10); White Blood Cell (WBC) Count 5.38 10x3/uL (4.8-10.8)
[2024-11-29 01:39] LABS: INR-International Normal Ratio 1.5; Prothrombin Time 17.8 sec (12.0-14.7)
[2024-11-29 01:40] LABS: PTT 50.7 sec (22.9-36.1)
[2024-11-29] MEDS: Potassium Phosphate 30 MMOL, Magnesium Sulfate 2 GM in Sodium Chloride 0.9% 250 ML 250 ML IVPB SCH (01:51)
[2024-11-29 02:01] LABS: Anisocytosis SLIGHT = 6-15 cells HPF (0-5); Macrocytosis SLIGHT = 6-15 cells HPF (0-5); Platelet Adequacy Comment Platelets Normal; Polychromasia SLIGHT = 2-3 cells HPF (0-2); Smudge Cells 5.8 %
[2024-11-29] MEDS: Magnesium 2 GM/50 ML(in water) 2 GM in Premix 1 BAG IVPB SCH (02:34)
[2024-11-29] MEDS: Potassium Phosphate 30 MMOL, Magnesium Sulfate 2 GM in Sodium Chloride 0.9% 250 ML IVPB SCH (02:35)
[2024-11-29 05:27] VITALS: BMI 27.3
[2024-11-29] MEDS: Pantoprazole 40 MG VIAL IVP SCH (08:25)
[2024-11-29] MEDS ORDERED: Pantoprazole 40 MG DR.TAB PO SCH (09:00)
[2024-11-29] MEDS ORDERED: Vancomycin 1 GM in Premix 1 BAG IVPB SCH (14:45)
[2024-11-29] MEDS ORDERED: Vancomycin Diaylsis Sliding Scale (Wt 71-99) FS SCH (15:15)
[2024-11-29] MEDS: Vancomycin 1.5 GM / NS 500ML VIAL-2-BAG IVPB SCH (16:22)
[2024-11-29] MEDS: HYDROcodone/Acetaminophen 5/325 mg Tablet PO PRN (17:40)
[2024-11-29] MEDS: Amiodarone 200 MG TAB PO SCH (20:49)
[2024-11-30 04:27] LABS: Anion Gap 20 mmol/L (10-20); BUN (Urea Nitrogen) 36 mg/dL (8.4-25.7); Calc. Creatinine Clearance 13 mL/min (70-130); Calcium 9.0 mg/dL (7.8-10.44); Carbon Dioxide 21 mmol/L (23-31); Chloride 98 mmol/L (98-107); Glucose 97 mg/dL (83-110); Magnesium 2.5 mg/dL (1.6-2.6); Potassium 3.9 mmol/L (3.5-5.1); Sodium 135 mmol/L (136-145)
[2024-11-30] MEDS: Albumin 25% 25 GM (100 mL) BOT IVPB SCH ×2 (06:50→13:25)
[2024-11-30 07:16] LABS: Vancomycin, Trough 18.1 ug/mL
[2024-11-30] MEDS ORDERED: Heparin 10,000 UNITS/ 10 ML VIAL ONE (09:45)
[2024-11-30 09:49] LABS: Platelet Count 178 10x3/uL (130-400)
[2024-11-30 10:05] LABS: Iron 43.0 ug/dL (65-175); Iron Binding Capacity, Total 93.0 mcg/dL (261-462); Uric Acid 6.8 mg/dL (3.7-7.7)
[2024-11-30 10:09] LABS: Fibrinogen 304 mg/dL (253-463)
[2024-11-30 10:10] LABS: INR-International Normal Ratio 1.6; PTT 46.8 sec (22.9-36.1); Prothrombin Time 18.8 sec (12.0-14.7)
[2024-11-30 10:11] LABS: D-Dimer Test 2.41 mcg/mL (0.27-0.43)
[2024-11-30] MEDS ORDERED: Vancomycin Diaylsis Sliding Scale (Wt 71-99) FS SCH (14:15)
[2024-11-30] MEDS ORDERED: cefTRIAXone\\ROCEPHIN 2 GM in Sodium Chloride 0.9% 100 ML IVPB SCH (17:00)
[2024-11-30 18:22] VITALS: BP 105/62; TEMP 97.5
[2024-11-30] MEDS: Vancomycin HCl 750 MG in Sodium Chloride 0.9% 250 ML 250 ML IVPB SCH (19:21)
== END 2024-11-30 19:45 | disposition short-term general hospital (02) | DRG 662 ==
LOC: ERS 09:09 → ERHOLD 16:04 → 2NO 18:54 → MSONC 11-18 17:45 → CCU 11-28 03:34 → PCU 11-29 10:30
PROVIDERS: ADMIT Family Medicine; ATTEND Emergency Medicine
PROC: 0TCC8ZZ Extirpation of Matter from Bladder Neck, Via Natural or Artificial Opening Endoscopic (ICD-10-PCS; principal; 2024-11-08)
PROC: 0W3R8ZZ Control Bleeding in Genitourinary Tract, Via Natural or Artificial Opening Endoscopic (ICD-10-PCS; 2024-11-08)
PROC: 0T7D8DZ Dilation of Urethra with Intraluminal Device, Via Natural or Artificial Opening Endoscopic (ICD-10-PCS; 2024-11-08)
PROC: 30233N1 Transfusion of Nonautologous Red Blood Cells into Peripheral Vein, Percutaneous Approach (ICD-10-PCS; 2024-11-09)
PROC: 30233J1 Transfusion of Nonautologous Serum Albumin into Peripheral Vein, Percutaneous Approach (ICD-10-PCS; 2024-11-15)
PROC: 06HY33Z Insertion of Infusion Device into Lower Vein, Percutaneous Approach (ICD-10-PCS; 2024-11-17)
PROC: 0JH63XZ Insertion of Tunneled Vascular Access Device into Chest Subcutaneous Tissue and Fascia, Percutaneous Approach (ICD-10-PCS; 2024-11-22)
PROC: 05HM33Z Insertion of Infusion Device into Right Internal Jugular Vein, Percutaneous Approach (ICD-10-PCS; 2024-11-22)
PROC: B5131ZA Fluoroscopy of Right Jugular Veins using Low Osmolar Contrast, Guidance (ICD-10-PCS; 2024-11-22)
PROC: 4A033R1 Measurement of Arterial Saturation, Peripheral, Percutaneous Approach (ICD-10-PCS; 2024-11-27)
DX: N30.41 Irradiation cystitis with hematuria (principal); G93.41 Metabolic encephalopathy; N18.6 End stage renal disease; N17.0 Acute kidney failure with tubular necrosis; N13.30 Unspecified hydronephrosis; C83.1A Mantle cell lymphoma, in remission; I12.0 Hypertensive chronic kidney disease with stage 5 chronic kidney disease or end stage renal disease; D62 Acute posthemorrhagic anemia; E87.20 Acidosis, unspecified; E22.2 Syndrome of inappropriate secretion of antidiuretic hormone; E78.5 Hyperlipidemia, unspecified; F41.9 Anxiety disorder, unspecified; Z88.0 Allergy status to penicillin; Z88.8 Allergy status to other drugs, medicaments and biological substances; Z79.899 Other long term (current) drug therapy; Z86.711 Personal history of pulmonary embolism; Z99.2 Dependence on renal dialysis; Z90.49 Acquired absence of other specified parts of digestive tract; Z98.890 Other specified postprocedural states; D63.1 Anemia in chronic kidney disease; E88.09 Other disorders of plasma-protein metabolism, not elsewhere classified; N40.0 Benign prostatic hyperplasia without lower urinary tract symptoms; E87.6 Hypokalemia; I48.0 Paroxysmal atrial fibrillation
CPT/HCPCS: 36415; 36416; 36430; 51702; 70450; 71045; 74176; 74177; 74420; 76770; 78815; 80048; 80053; 80069; 80202; 81001; 82040; 82140; 82533; 82550; 82570; 82728; 82805; 83010; 83540; 83550; 83605; 83615; 83735; 84100; 84145; 84300; 84550; 85025; 85046; 85049; 85300; 85362; 85379; 85384; 85610; 85730; 86704; 86706; 86803; 86850; 86900; 86901; 87040; 87077; 87086; 87149; 87186; 87340; 87522; 88184; 90935; 93005; 93306; 93976; 94640; 96374; 96375; 96376; A9552; C1750; G0257; J0171; J0282; J0665; J0696; J1171; J1644; J1940; J2175; J2270; J2310; J2405; J2470; J2550; J2704; J2916; J3010; J3475; J3490; J7030; J7042; J7050; J7070; J7620; P9016; P9047; Q4081; Q5105; Q9967